=== PATIENT | male | born 1965 | race Caucasian/White ===

== ENCOUNTER 2017-12-22 22:34 | Inpatient (IN) | payer OTHER, MEDICAID ==
[~2017-12-22] VITALS: Ht 185.4 cm; Wt 73.7 kg
[2017-12-22] MEDS ORDERED: NALOXONE 1 MG/ML, 2ML ONE (23:21)
[2017-12-22 23:45] LABS: BASOPHILS # (AUTO) 0.05 x10^3/uL (0-0.1); BASOPHILS % (AUTO) 0 % (0-1); EOSINOPHILS # (AUTO) 0.08 x10^3/uL (0-0.4); EOSINOPHILS % (AUTO) 1 % (1-7); LYMPHOCYTES # (AUTO) 3.18 x10^3/uL (1-3.4); LYMPHOCYTES % (AUTO) 22 % (22-44); MD NO; MEAN CORPUSCULAR HEMOGLOBIN 31.1 pg (27.5-34.5); MEAN CORPUSCULAR HGB CONC 33.8 g/dL (33.2-36.2); MEAN CORPUSCULAR VOLUME 92.1 fL (81-97); MEAN PLATELET VOLUME 7.5 fL (7.4-10.4); MONOCYTES # (AUTO) 0.79 x10^3/uL (0.2-0.8); MONOCYTES % (AUTO) 6 % (2-9); NEUTROPHILS # (AUTO) 10.16 x10^3/uL (1.8-6.8); NEUTROPHILS % (AUTO) 71 % (42-75); PLATELET COUNT 210 x10^3/uL (130-400); RED BLOOD COUNT 4.71 x10^6/uL (4.38-5.82)
[2017-12-22 23:58] LABS: ALANINE AMINOTRANSFERASE 32 U/L (12-78); ALBUMIN 3.7 g/dL (3.4-5.0); ANION GAP 8 mmol/L (5-15); CALCIUM 9.2 mg/dL (8.5-10.1); CHLORIDE 106 mmol/L (98-107); CREATININE 0.75 mg/dL (0.7-1.3); SALICYLATE LEVEL 6.2 mg/dL (2.8-20.0)
[2017-12-23] LABS: ALKALINE PHOSPHATASE 63 U/L (45-117); BILIRUBIN,TOTAL 0.3 mg/dL (0.2-1.0); TOTAL PROTEIN 6.7 g/dL (6.4-8.2)
[2017-12-23 00:06] LABS: ACETAMINOPHEN < 2 mcg/mL (10-30)
[2017-12-23] MEDS ORDERED: NALOXONE 0.2 MG in SODIUM CHLORIDE 0.9% 1,000 ML IV SCH (01:30)
[2017-12-23] MEDS ORDERED: NALOXONE 0.4 MG/ML, 1ML IVPush ONE ×2 (01:30)
[2017-12-23] MEDS ORDERED: D5%-0.45NACL+KCL 20MEQ 1,000 ML IV SCH (01:37)
[2017-12-23] MEDS ORDERED: ONDANSETRON ODT 4 MG PO PRN (02:00)
[2017-12-23] MEDS ORDERED: ONDANSETRON 2MG/ML, 2ML IVPush PRN (02:00)
[2017-12-23] MEDS ORDERED: ACETAMINOPHEN 325 MG TABLET PO PRN (02:00)
[2017-12-23] MEDS ORDERED: NALOXONE 4 MG in SODIUM CHLORIDE 0.9% 1,000 ML IV PRN (02:30)
[2017-12-23] MEDS: NICOTINE 14MG/24 HR PATCH.TD24 TD SCH ×2 (02:34→23:01)
[2017-12-23 04:11] VITALS: BP 96/58
[2017-12-23 11:00] LABS: MICROSCOPIC NOT IND
[2017-12-23 11:22] LABS: CULTURE INDICATED? NO
[2017-12-23 11:56] LABS: AMPHETAMINE SCREEN, URINE Negative (Negative); BENZODIAZEPINE SCREEN, URINE Positive (Negative); CANNABINOID SCREEN, URINE Negative (Negative); COCAINE SCREEN, URINE Negative (Negative); METHADONE SCREEN, URINE Negative (Negative); OPIATE SCREEN, URINE Positive (Negative)
[2017-12-23 11:57] LABS: BARBITURATE SCREEN, URINE Negative (Negative)
[2017-12-23] MEDS ORDERED: ENOXAPARIN 40 MG/0.4 ML SQ SCH (15:30)
[2017-12-24 04:00] VITALS: BP 146/67
[2017-12-24 04:41] LABS: ALANINE AMINOTRANSFERASE 31 U/L (12-78); ALBUMIN 3.6 g/dL (3.4-5.0); ANION GAP 6 mmol/L (5-15); CALCIUM 9.1 mg/dL (8.5-10.1); CHLORIDE 110 mmol/L (98-107)
[2017-12-24 04:44] LABS: ALKALINE PHOSPHATASE 69 U/L (45-117); BILIRUBIN,TOTAL 0.6 mg/dL (0.2-1.0); CREATININE 0.62 mg/dL (0.7-1.3); TOTAL PROTEIN 6.6 g/dL (6.4-8.2)
[2017-12-24 04:46] LABS: BASOPHILS # (AUTO) 0.02 x10^3/uL (0-0.1); BASOPHILS % (AUTO) 0 % (0-1); EOSINOPHILS # (AUTO) 0.08 x10^3/uL (0-0.4); EOSINOPHILS % (AUTO) 1 % (1-7); LYMPHOCYTES # (AUTO) 2.93 x10^3/uL (1-3.4); LYMPHOCYTES % (AUTO) 40 % (22-44); MD NO; MEAN CORPUSCULAR HEMOGLOBIN 31.2 pg (27.5-34.5); MEAN CORPUSCULAR HGB CONC 33.6 g/dL (33.2-36.2); MEAN CORPUSCULAR VOLUME 92.8 fL (81-97); MEAN PLATELET VOLUME 8.2 fL (7.4-10.4); MONOCYTES # (AUTO) 0.37 x10^3/uL (0.2-0.8); MONOCYTES % (AUTO) 5 % (2-9); NEUTROPHILS # (AUTO) 3.94 x10^3/uL (1.8-6.8); NEUTROPHILS % (AUTO) 54 % (42-75); PLATELET COUNT 184 x10^3/uL (130-400); RED BLOOD COUNT 4.76 x10^6/uL (4.38-5.82); RED CELL DISTRIBUTION WIDTH 13.2 % (9.4-14.8)
[2017-12-24 07:00] VITALS: BP 125/62
[2017-12-24 08:00] VITALS: BP 135/75
[2017-12-24] MEDS ORDERED: ASPI-621 PO (09:16)
[2017-12-24] MEDS ORDERED: OMEG1CAP23 PO (09:17)
[2017-12-24] MEDS ORDERED: METF500T4 PO (09:17)
[2017-12-24] MEDS ORDERED: OXYC10TA6 PO (09:17)
[2017-12-24] MEDS ORDERED: LISI-167 PO (09:17)
[2017-12-24] MEDS ORDERED: ATOR20TA9 PO (09:17)
[2017-12-24] MEDS ORDERED: PARO20TA98 PO (09:56)
[2017-12-24] MEDS ORDERED: TEMA15CA PO (09:56)
[2017-12-24] MEDS ORDERED: FINA5TAB4 PO (09:56)
[2017-12-24] MEDS ORDERED: OXYC18CA PO (10:01)
[2017-12-24] MEDS ORDERED: NALO0.4V14 IM (11:06)
[2017-12-24 11:30] VITALS: BP 125/83
== END 2017-12-24 11:53 | disposition home or self-care (01) | DRG 917 ==
LOC: ED 23:59 → EDIP 12-23 01:41 → CCU 12-23 02:17 → DCLOUNGE 12-24 11:30
PROVIDERS: ADMIT Internal Medicine; ATTEND Internal Medicine
DX: T40.2X1A Poisoning by other opioids, accidental (unintentional), initial encounter (principal); J96.01 Acute respiratory failure with hypoxia; G92 Toxic encephalopathy; F11.20 Opioid dependence, uncomplicated; D72.829 Elevated white blood cell count, unspecified; G89.4 Chronic pain syndrome; F41.9 Anxiety disorder, unspecified; F17.210 Nicotine dependence, cigarettes, uncomplicated; M54.5 Low back pain; R00.0 Tachycardia, unspecified; Z88.0 Allergy status to penicillin
CPT/HCPCS: 36415; 71045; 80053; 80307; 80329; 81003; 82962; 85025; 87081; 93005; 99291; J1650; J2310; G0480; J3480; J7030

== ENCOUNTER 2018-07-03 13:27 | Inpatient (IN) | payer OTHER, MEDICAID ==
[~2018-07-03] VITALS: Ht 182.9 cm; Wt 65.8 kg
[~2018-07-03 13:27] MED LIST: ASPI81TA45 PO; ATOR20TA37 PO; FINA5TAB4 PO; LISI-167 PO; METF500T17 PO; NALO0.4V14 IM; OMEG1CAP23 PO; OXYC10TA6 PO; OXYC18CA PO; PARO20TA98 PO; TEMA15CA PO
[2018-07-03] MEDS ORDERED: PLEASE ENTER HEIGHT AND WEIGHT MC SCH (14:12)
[2018-07-03] MEDS ORDERED: ONDANSETRON 2MG/ML, 2ML IVPush ONE (14:30)
[2018-07-03] MEDS ORDERED: SODIUM CHLORIDE 0.9% 1,000ML IVBOLUS ONE ×2 (14:30→15:30)
[2018-07-03] MEDS ORDERED: MORPHINE SULFATE 4 MG/ML, 1ML ONE ×2 (14:43→20:32)
[2018-07-03] MEDS ORDERED: ONDANSETRON 2MG/ML, 2ML ONE (14:43)
[2018-07-03 14:45] LABS: BASOPHILS # (AUTO) 0.03 x10^3/uL (0-0.1); BASOPHILS % (AUTO) 0 % (0-1); EOSINOPHILS % (AUTO) 0 % (1-7); LYMPHOCYTES # (AUTO) 3.73 x10^3/uL (1-3.4); LYMPHOCYTES % (AUTO) 23 % (22-44); MD NO; MEAN CORPUSCULAR HGB CONC 34.3 g/dL (33.2-36.2); MEAN CORPUSCULAR VOLUME 96.3 fL (81-97); MEAN PLATELET VOLUME 6.7 fL (7.4-10.4); MONOCYTES # (AUTO) 1.37 x10^3/uL (0.2-0.8); MONOCYTES % (AUTO) 8 % (2-9); NEUTROPHILS # (AUTO) 11.35 x10^3/uL (1.8-6.8); NEUTROPHILS % (AUTO) 69 % (42-75); PLATELET COUNT 426 x10^3/uL (130-400); RED BLOOD COUNT 3.45 x10^6/uL (4.38-5.82); RED CELL DISTRIBUTION WIDTH 13.1 % (9.4-14.8)
[2018-07-03] MEDS: MORPHINE SULFATE 4 MG/ML, 1ML IVPush PRN ×2 (14:48→20:34)
[2018-07-03 14:56] LABS: ALANINE AMINOTRANSFERASE 37 U/L (12-78); ALBUMIN 2.9 g/dL (3.4-5.0); ANION GAP 8 mmol/L (5-15); CALCIUM 8.1 mg/dL (8.5-10.1); CHLORIDE 107 mmol/L (98-107); CREATININE 0.74 mg/dL (0.7-1.3)
[2018-07-03 15:01] LABS: ALKALINE PHOSPHATASE 51 U/L (45-117); BILIRUBIN,TOTAL 0.7 mg/dL (0.2-1.0); TOTAL PROTEIN 5.2 g/dL (6.4-8.2); TROPONIN I < 0.015 ng/mL (0.000-0.045)
[2018-07-03] MEDS ORDERED: MULT-516 PO (15:13)
[2018-07-03] MEDS ORDERED: VANCOMYCIN PER PHARMACY MC ONE (16:00)
[2018-07-03] MEDS ORDERED: AZTREONAM 2 GM in DEXTROSE 5% 100 ML IV ONE (16:00)
[2018-07-03] MEDS ORDERED: VANCOMYCIN 1,300 MG in SODIUM CHLORIDE 0.9% 250 ML IV ONE (16:30)
[2018-07-03] MEDS ORDERED: METRONIDAZOLE PMX 500MG/100ML 100 ML IV ONE (17:00)
[2018-07-03 17:05] LABS: MICROSCOPIC NOT IND
[2018-07-03 17:15] LABS: CULTURE INDICATED? NO
[2018-07-03] MEDS ORDERED: ONDANSETRON 2MG/ML, 2ML IVPush PRN (17:30)
[2018-07-03] MEDS ORDERED: PANTOPRAZOLE 80 MG in SODIUM CHLORIDE 0.9% 50 ML IV ONE (17:30)
[2018-07-03 17:33] LABS: CLOSTRIDIUM DIFFICILE ANTIGEN NEGATIVE; CLOSTRIDIUM DIFFICILE TOXIN NEGATIVE (Negative)
[2018-07-03 18:02] LABS: PROTHROMBIN TIME 10.6 Seconds (9.6-11.5)
[2018-07-03] MEDS ORDERED: MAGNESIUM SULFATE PMX 2GM/50ML 50 ML IV ONE ×2 (18:30→22:30)
[2018-07-03] MEDS ORDERED: MIDAZOLAM 1 MG/ML, 2ML ONE ×2 (19:10→19:38)
[2018-07-03] MEDS ORDERED: FENTANYL PF 100 MCG/2ML ONE ×2 (19:23→19:38)
[2018-07-03 19:24] VITALS: BP 71/38
[2018-07-03] MEDS ORDERED: MIDAZOLAM 1 MG/ML, 2ML IV ONE (19:30)
[2018-07-03 19:35] VITALS: BP 114/58
[2018-07-03] MEDS: PANTOPRAZOLE 80 MG in SODIUM CHLORIDE 0.9% 100 ML IV SCH (19:38)
[2018-07-03 19:54] VITALS: BP 115/82
[2018-07-03 20:58] VITALS: BP 136/61
[2018-07-03] MEDS: SODIUM CHLORIDE 0.9% 1,000 ML IV SCH (21:20)
[2018-07-03 22:02] VITALS: BP 106/66
[2018-07-03] MEDS: morphine SULFATE 10 MG/ML, 1ML IVPush PRN (23:03)
[2018-07-04] VITALS (9 sets, daily range): BP systolic 111–138; BP diastolic 51–72
[2018-07-04] MEDS: morphine SULFATE 10 MG/ML, 1ML IVPush PRN ×3 (02:36→09:07)
[2018-07-04] MEDS: SODIUM CHLORIDE 0.9% 1,000 ML IV SCH ×2 (03:50→11:14)
[2018-07-04 04:56] LABS: MEAN CORPUSCULAR HGB CONC 34.7 g/dL (33.2-36.2); MEAN CORPUSCULAR VOLUME 92.2 fL (81-97); MEAN PLATELET VOLUME 6.9 fL (7.4-10.4); PLATELET COUNT 201 x10^3/uL (130-400); RED BLOOD COUNT 2.41 x10^6/uL (4.38-5.82)
[2018-07-04] MEDS: PANTOPRAZOLE 80 MG in SODIUM CHLORIDE 0.9% 100 ML IV SCH (04:58)
[2018-07-04 04:59] LABS: ALBUMIN 2.1 g/dL (3.4-5.0); ANION GAP 6 mmol/L (5-15); CHLORIDE 116 mmol/L (98-107)
[2018-07-04 05:05] LABS: ALANINE AMINOTRANSFERASE 20 U/L (12-78); ALKALINE PHOSPHATASE 29 U/L (45-117); BILIRUBIN,TOTAL 0.5 mg/dL (0.2-1.0); CREATININE 0.47 mg/dL (0.7-1.3); TOTAL PROTEIN 3.7 g/dL (6.4-8.2)
[2018-07-04 05:15] LABS: CALCIUM 5.9 mg/dL (8.5-10.1)
[2018-07-04] MEDS ORDERED: CALCIUM GLUCONATE 9.2 MEQ in SODIUM CHLORIDE 0.9% 100 ML IV ONE (05:30)
[2018-07-04 05:47] LABS: BASOPHILS # (AUTO) 0.02 x10^3/uL (0-0.1); BASOPHILS % (AUTO) 0 % (0-1); EOSINOPHILS # (AUTO) 0.19 x10^3/uL (0-0.4); EOSINOPHILS % (AUTO) 2 % (1-7); LYMPHOCYTES # (AUTO) 3.28 x10^3/uL (1-3.4); LYMPHOCYTES % (AUTO) 34 % (22-44); MD SCAN; MONOCYTES # (AUTO) 0.83 x10^3/uL (0.2-0.8); MONOCYTES % (AUTO) 9 % (2-9); NEUTROPHILS # (AUTO) 5.28 x10^3/uL (1.8-6.8); NEUTROPHILS % (AUTO) 55 % (42-75)
[2018-07-04] MEDS ORDERED: MAGNESIUM SULFATE PMX 4GM/100M 100 ML IV ONE (08:00)
[2018-07-04] MEDS ORDERED: CALCIUM CHLORIDE 13.6 MEQ in SODIUM CHLORIDE 0.9% 100 ML IV ONE (08:00)
[2018-07-04] MEDS ORDERED: EPINEPHRINE SYRINGE 0.1 MG/ML, 10ML ONE (08:05)
[2018-07-04] MEDS: PANTOPRAZOLE 40 MG IV IVPush SCH ×2 (09:07→20:32)
[2018-07-04] MEDS ORDERED: OXYcodone 5 MG/5 ML ORAL.SOL UDC PO PRN (09:30)
[2018-07-04 10:40] LABS: HEMOGRAM NOTE RECHECKED
[2018-07-04] MEDS: OXYcodone IR 5MG TABLET PO PRN ×4 (11:00→21:36)
[2018-07-05] MEDS: SODIUM CHLORIDE 0.9% 1,000 ML IV SCH (00:03)
[2018-07-05] MEDS: OXYcodone IR 5MG TABLET PO PRN ×2 (02:06→06:29)
[2018-07-05 04:15] VITALS: BP 106/48
[2018-07-05 06:47] LABS: ANION GAP 8 mmol/L (5-15); CALCIUM 6.9 mg/dL (8.5-10.1); CHLORIDE 111 mmol/L (98-107); CREATININE 0.34 mg/dL (0.7-1.3)
[2018-07-05] MEDS: PANTOPRAZOLE 40 MG IV IVPush SCH ×2 (09:15→19:48)
[2018-07-05] MEDS ORDERED: POTASSIUM CHLORIDE 20 MEQ TAB.ER.PRT PO ONE (10:00)
[2018-07-05 19:26] VITALS: BP 145/74
[2018-07-06 01:52] VITALS: BP 148/67
[2018-07-06] MEDS: SODIUM CHLORIDE 0.9% 1,000 ML IV SCH ×2 (03:51→19:38)
[2018-07-06 06:02] VITALS: BP 146/74
[2018-07-06] MEDS: PANTOPRAZOLE 40 MG IV IVPush SCH ×2 (08:37→19:37)
[2018-07-06 09:41] LABS: BASOPHILS # (AUTO) 0.03 x10^3/uL (0-0.1); BASOPHILS % (AUTO) 0 % (0-1); EOSINOPHILS # (AUTO) 0.01 x10^3/uL (0-0.4); EOSINOPHILS % (AUTO) 0 % (1-7); LYMPHOCYTES # (AUTO) 1.88 x10^3/uL (1-3.4); LYMPHOCYTES % (AUTO) 24 % (22-44); MD SCAN; MEAN CORPUSCULAR HEMOGLOBIN 32.1 pg (27.5-34.5); MEAN CORPUSCULAR HGB CONC 34.5 g/dL (33.2-36.2); MEAN CORPUSCULAR VOLUME 92.9 fL (81-97); MEAN PLATELET VOLUME 7.5 fL (7.4-10.4); MONOCYTES # (AUTO) 0.28 x10^3/uL (0.2-0.8); MONOCYTES % (AUTO) 4 % (2-9); NEUTROPHILS # (AUTO) 5.71 x10^3/uL (1.8-6.8); NEUTROPHILS % (AUTO) 72 % (42-75); PLATELET COUNT 195 x10^3/uL (130-400); RED BLOOD COUNT 3.13 x10^6/uL (4.38-5.82); RED CELL DISTRIBUTION WIDTH 15.5 % (9.4-14.8)
[2018-07-06 09:45] LABS: ALANINE AMINOTRANSFERASE 26 U/L (12-78); ALBUMIN 2.7 g/dL (3.4-5.0); ANION GAP 4 mmol/L (5-15); CALCIUM 7.3 mg/dL (8.5-10.1); CHLORIDE 110 mmol/L (98-107); CREATININE 0.59 mg/dL (0.7-1.3)
[2018-07-06 09:48] LABS: ALKALINE PHOSPHATASE 46 U/L (45-117); BILIRUBIN,TOTAL 0.4 mg/dL (0.2-1.0); TOTAL PROTEIN 4.9 g/dL (6.4-8.2)
[2018-07-06 13:53] VITALS: BP 157/69
[2018-07-06] MEDS ORDERED: MAGNESIUM SULFATE PMX 4GM/100M 100 ML IV ONE (14:00)
[2018-07-06] MEDS ORDERED: POTASSIUM CHLORIDE 20 MEQ TAB.ER.PRT PO ONE (14:00)
[2018-07-06] MEDS ORDERED: ZOLPIDEM 10MG TABLET PO PRN (19:00)
[2018-07-06 19:08] VITALS: BP 151/73
[2018-07-07 00:39] VITALS: BP 147/74
[2018-07-07 04:35] LABS: BASOPHILS # (AUTO) 0.02 x10^3/uL (0-0.1); BASOPHILS % (AUTO) 0 % (0-1); EOSINOPHILS # (AUTO) 0.07 x10^3/uL (0-0.4); EOSINOPHILS % (AUTO) 1 % (1-7); LYMPHOCYTES # (AUTO) 1.97 x10^3/uL (1-3.4); LYMPHOCYTES % (AUTO) 30 % (22-44); MD NO; MEAN CORPUSCULAR HEMOGLOBIN 32.8 pg (27.5-34.5); MEAN CORPUSCULAR HGB CONC 35.3 g/dL (33.2-36.2); MEAN CORPUSCULAR VOLUME 92.8 fL (81-97); MEAN PLATELET VOLUME 7.4 fL (7.4-10.4); MONOCYTES # (AUTO) 0.27 x10^3/uL (0.2-0.8); MONOCYTES % (AUTO) 4 % (2-9); NEUTROPHILS # (AUTO) 4.25 x10^3/uL (1.8-6.8); NEUTROPHILS % (AUTO) 65 % (42-75); PLATELET COUNT 187 x10^3/uL (130-400); RED BLOOD COUNT 2.84 x10^6/uL (4.38-5.82); RED CELL DISTRIBUTION WIDTH 15.7 % (9.4-14.8)
[2018-07-07 04:48] LABS: CHLORIDE 114 mmol/L (98-107)
[2018-07-07 04:57] LABS: ALANINE AMINOTRANSFERASE 25 U/L (12-78); ALBUMIN 2.5 g/dL (3.4-5.0); ALKALINE PHOSPHATASE 42 U/L (45-117); ANION GAP 4 mmol/L (5-15); BILIRUBIN,TOTAL 0.4 mg/dL (0.2-1.0); CALCIUM 7.2 mg/dL (8.5-10.1); CREATININE 0.63 mg/dL (0.7-1.3); TOTAL PROTEIN 4.4 g/dL (6.4-8.2)
[2018-07-07 06:42] VITALS: BP 157/78
[2018-07-07] MEDS ORDERED: MAGNESIUM SULFATE PMX 2GM/50ML 50 ML IV ONE ×2 (07:30→08:30)
[2018-07-07] MEDS ORDERED: PANT40TA5 PO (08:12)
[2018-07-07] MEDS ORDERED: LISI-167 PO (08:13)
[2018-07-07] MEDS: NEUTRA PHOS K 250 MG TABLET PO SCH ×2 (08:33→08:35)
[2018-07-07] MEDS: AMLODIPINE 5 MG TABLET PO SCH ×2 (08:33→08:40)
[2018-07-07] MEDS: PANTOPRAZOLE 40 MG IV IVPush SCH (08:33)
[2018-07-07] MEDS: SODIUM CHLORIDE 0.9% 1,000 ML IV SCH (08:35)
[2018-07-07] MEDS ORDERED: NEUTRA PHOS K 250 MG TABLET PO SCH (09:00)
== END 2018-07-07 12:30 | disposition home or self-care (01) | DRG 377 ==
LOC: ED 13:45 → SUATTDRO 16:58 → EDIP 17:23 → CCU 21:06 → 3NE 07-05 16:26 → DCLOUNGE 07-07 12:14
PROVIDERS: ADMIT Internal Medicine; ATTEND Internal Medicine
PROC: 3E0G8GC Introduction of Other Therapeutic Substance into Upper GI, Via Natural or Artificial Opening Endoscopic (ICD-10-PCS; 2018-07-03)
PROC: 0DJ08ZZ Inspection of Upper Intestinal Tract, Via Natural or Artificial Opening Endoscopic (ICD-10-PCS; 2018-07-03)
PROC: 30233N1 Transfusion of Nonautologous Red Blood Cells into Peripheral Vein, Percutaneous Approach (ICD-10-PCS; principal; 2018-07-03 19:00)
DX: K26.4 Chronic or unspecified duodenal ulcer with hemorrhage (principal); R57.8 Other shock; E43 Unspecified severe protein-calorie malnutrition; R57.1 Hypovolemic shock; Z68.1 Body mass index [BMI] 19.9 or less, adult; E87.2 Acidosis; D62 Acute posthemorrhagic anemia; F11.20 Opioid dependence, uncomplicated; J44.9 Chronic obstructive pulmonary disease, unspecified; K29.80 Duodenitis without bleeding; I10 Essential (primary) hypertension; E78.5 Hyperlipidemia, unspecified; E11.9 Type 2 diabetes mellitus without complications; F17.210 Nicotine dependence, cigarettes, uncomplicated; E87.6 Hypokalemia; E83.42 Hypomagnesemia; G89.29 Other chronic pain; M54.9 Dorsalgia, unspecified; T39.395A Adverse effect of other nonsteroidal anti-inflammatory drugs [NSAID], initial encounter; Y92.89 Other specified places as the place of occurrence of the external cause; Z88.0 Allergy status to penicillin; Z79.82 Long term (current) use of aspirin; Z80.1 Family history of malignant neoplasm of trachea, bronchus and lung; Z82.3 Family history of stroke; Z78.9 Other specified health status; Z79.84 Long term (current) use of oral hypoglycemic drugs; Z79.899 Other long term (current) drug therapy
CPT/HCPCS: 36415; 36430; 71045; 74177; 80048; 80053; 80307; 81003; 83605; 83690; 83735; 84100; 84145; 84484; 85014; 85018; 85025; 85610; 85730; 86677; 86850; 86900; 86923; 87040; 87081; 87324; 89055; 93005; 96361; 96374; 96375; 96376; 99285; G0378; J0610; J2405; C9113; J2270; J3475; J7030; P9016